=== PATIENT | female | born 1955 | race Caucasian/White ===

== ENCOUNTER 2019-12-28 13:24 | Inpatient (IN) | payer MEDICAID, OTHER ==
[2019-12-28 17:41] VITALS: BP 122/71
[2019-12-28] MEDS ORDERED: Acetaminophen 500 MG TAB PO PRN (17:42)
[2019-12-28] MEDS ORDERED: Magnesium Hydroxide (MOM) 30 mL UDC PO PRN (17:42)
[2019-12-29] MEDS: Multivitamin Tab PO SCH (09:51)
[2019-12-29 11:27] LABS: BILIRUBIN,TOTAL 0.2 mg/dL (0.0-1.0); CREATININE - SERUM 1.2 mg/dL (0.70-1.30); TOTAL PROTEIN,SERUM 6.5 g/dL (6.4-8.3)
--- NOTE | 2019-12-29 12:05 | History & Physical ---
ADMIT DATE: 12/28/2019 IDENTIFYING INFORMATION: The patient is a 64-year-old female. JUSTIFICATION FOR ADMISSION: The patient was admitted on a hold for grave disability. HISTORY OF PRESENT ILLNESS: The patient was living in a board and care, was found wandering in the streets became violent when she was approached, she was oriented only to person and place. She was a poor historian. When I tried talk to her, she was unable to participate in meaningful conversation, very confused and somewhat sedated. The patient is unable to give much information. Very poor historian. According to the hold, the patient was on the streets, acting bizarre, unable to take care of herself. Apparently, she wandered away from her board and care. PAST PSYCHIATRIC HISTORY: Unable to obtain because the patient was unable to participate in meaningful conversation. SUBSTANCE ABUSE HISTORY: Unable to obtain; however, order urine drug screen. MEDICAL HISTORY: As per medical doctor. CURRENT MEDICATIONS: Celexa 20 mg daily, BuSpar 15 mg twice a day. She is on multivitamin daily, Seroquel 300 mg at bedtime. Apparently may have mental illness seemed like she may have bipolar disorder. FAMILY AND SOCIAL HISTORY: Unable to obtain. MENTAL STATUS EXAMINATION: The patient is appropriately dressed, not well groomed. She was in bed. The patient was wandering in the streets became violent when she was approached. The patient is unable to participate in meaningful conversation, unable to tell me the date, where she is, why she is here, unable to make safe plan for self-care. I am not sure about her sleep and appetite or hallucination. She seems to have confused, unable to make safe plan for self-care, unable to test her memory. Her insight about her illness is poor, does not realize the problem. Judgment is poor with her wandering in the streets becoming aggressive. IMPRESSION: Bipolar disorder, unspecified with psychosis, cognitive disorder, not otherwise specified. MEDICAL DIAGNOSES: Deferred to the medical doctor. She is accepting treatment. Negative poor coping skills. INITIAL TREATMENT AND PLAN: The patient was started back on her medication. I asked the staff to check her ammonia level stat, will do group therapy, milieu therapy, and individual therapy. ESTIMATED LENGTH OF STAY: 3-7 days. DISCHARGE CRITERIA: Decreasing agitation, psychosis after discharge, outpatient treatment. JOB# [id number]
[2019-12-29 12:24] LABS: HEMATOCRIT 36.3 % (36-48); HEMOGLOBIN 11.9 g/dL (12.0-16.0); MEAN CORPUSCULAR HEMOGLOBIN 30 pg (27-31); MEAN CORPUSCULAR HGB CONC 33 % (32-36); MEAN CORPUSCULAR VOLUME 90 fL (79.0-98.0); PLATELET COUNT 180 K/uL (130-430); RED BLOOD COUNT 4.02 MIL/uL (4.2-6.2); RED CELL DISTRIBUTION WIDTH 13.6 % (9.0-15.0); WHITE BLOOD COUNT 4.5 K/uL (4.8-10.8)
[2019-12-29 12:25] LABS: BASOPHILS % (AUTO) 1.1 % (0.0-2.0); EOSINOPHILS # (AUTO) 0.1 K/uL (0.0-0.4); EOSINOPHILS % (AUTO) 2.7 % (0-4); LYMPHOCYTES # (AUTO) 1.4 K/uL (1.0-5.5); LYMPHOCYTES % (AUTO) 30.7 % (20.5-51.5); MONOCYTES # (AUTO) 0.4 K/uL (0.0-1.0); MONOCYTES % (AUTO) 8.5 % (1.7-9.3); NEUTROPHILS # (AUTO) 2.6 K/uL (1.8-7.7)
--- NOTE | 2019-12-29 14:03 | History & Physical ---
ADMIT DATE: 12/28/2019 CHIEF COMPLAINT: The patient was found wandering the streets. HISTORY OF PRESENT ILLNESS: We have a 64-year-old female with CKD who was found wandering the streets. The patient at this time is slightly obtunded and cannot give me any meaningful history. The patient was then admitted for psychiatric care. PAST MEDICAL HISTORY: 1. CKD. 2. Hypertension. MEDICATIONS: List reviewed. ALLERGIES: None. PHYSICAL EXAMINATION: VITAL SIGNS: Temperature is 98.0, pulse 66, respirations 20, blood pressure 98/64. HEENT: Normocephalic, atraumatic head exam. NECK: Supple. CARDIOVASCULAR: Regular rate and rhythm. LUNGS: Clear. ABDOMEN: Soft, nontender. EXTREMITIES: No edema, cyanosis or clubbing. Cranial nerves grossly intact ASSESSMENT AND PLAN: 1. Chronic kidney disease. 2. Hypertension. The patient will get routine labs including CBC, CMP. JOB# [id number] [facility]
[2019-12-30 06:07] LABS: A1C 5.3 % (4.8-5.6)
[2019-12-30] MEDS: Multivitamin Tab PO SCH (08:17)
--- NOTE | 2019-12-30 15:02 | Progress Notes ---
DATE: 12/30/2019 Case was discussed with staff of the patient, reviewed records. The patient described as being less selectively mute, but she was able to eat. She is compliant with the medications. She is sleeping most of the time. Continues to have poor insight, unable to engage in any meaningful conversation or give more information regarding her history. She is already on BuSpar and Celexa that she came on as well as Seroquel. No side effects with the medication, no sedation, no nausea, no extrapyramidal symptoms. We will continue outpatient group therapy, milieu therapy, and adjust medications as needed. JOB# [id number]
[2019-12-31] MEDS: Multivitamin Tab PO SCH (08:18)
--- NOTE | 2019-12-31 12:53 | Progress Notes ---
DATE: 12/31/2019 Case was discussed with staff of the patient, reviewed records. The patient was sitting in same bed, continues to be selectively mute, continues to be unable to participate in a meaningful conversation or make safe plan for self-care. She is being compliant with the medication with no side effects, no sedation, no nausea, no extrapyramidal symptoms. I cannot really give her any diagnosis of dementia or find out what is going on since she is not willing to talk at this time, the staff report that she eats sometimes. She is staying in bed most of the time. No side effects with the medication, no sedation, no nausea, no extrapyramidal symptoms. I will continue outpatient group therapy, milieu therapy, adjust medication as needed. JOB# [id number] MTDD
[2020-01-01] MEDS: Multivitamin Tab PO SCH (08:41)
--- NOTE | 2020-01-01 18:55 | Progress Notes ---
DATE: 01/01/2020 Case was discussed with staff of the patient, reviewed records. The patient continues to be selectively mute, though she has her eyes open and she is alert, but she would not answer any of my questions. Continues to be internally preoccupied. No side effects with the medication, no sedation, no nausea, no extrapyramidal symptoms. I will be increasing Seroquel to 325 mg at bedtime. We will continue outpatient group therapy, milieu therapy, adjust medication as needed. JOB# [id number]
[2020-01-01] MEDS: QUEtiapine Fumarate 300 MG, QUEtiapine Fumarate 25 MG PO SCH (21:28)
[2020-01-02] MEDS: Multivitamin Tab PO SCH (08:44)
--- NOTE | 2020-01-02 21:32 | Progress Notes ---
DATE: 01/02/2020 PSYCHIATRIC FOLLOWUP NOTE IDENTIFYING DATA: A 64-year-old female who was found wandering in the streets, became violent and disorganized, poor historian. Medication reconciliation reviewed. Nursing staff reported the patient mostly has been isolative, withdrawn, disengaged. Today on [id number] evaluation, the patient continues to be withdrawn in a position, disengaged. MENTAL STATUS EXAMINATION: Withdrawn, disengaged, preoccupied internally. ASSESSMENT AND PLAN: Ongoing psychosis. We will continue with the recent increase of Seroquel with the primary psychiatrist. Medication reconciliation reviewed, which include BuSpar, Celexa, Ativan as needed and quetiapine 325 at nighttime as needed. JOB# [id number]
[2020-01-03] MEDS: QUEtiapine Fumarate 300 MG, QUEtiapine Fumarate 25 MG PO SCH ×2 (06:47→21:34)
[2020-01-03] MEDS: Multivitamin Tab PO SCH (09:12)
--- NOTE | 2020-01-03 09:45 | Progress Notes ---
DATE: 01/03/2020 SUBJECTIVE: The patient was seen and evaluated. The patient's chart was reviewed. Covering for Dr. Olguin. Nursing staff reporting the patient continues to be isolative, withdrawn. Today on qbtx-xv-ihib evaluation, the patient is minimally interactive, disengaged. No overt agitation noted. MENTAL STATUS EXAMINATION: Withdrawn, ____. ASSESSMENT AND PLAN: A 64-year-old female with a history of psychosis, who continues to be internally preoccupied, mostly withdrawn, disengaged ____. We will continue with the primary psychiatrist's treatment plan and goals to continue to reach steady state. JOB# [id number]
[2020-01-04] MEDS: Multivitamin Tab PO SCH (08:08)
--- NOTE | 2020-01-04 11:17 | Progress Notes ---
DATE: 01/04/2020 Case was discussed with staff of the patient, reviewed records. The patient continues to be selectively mute, continues to have poor insight, isolating herself, but she is able to eat, not engaged at all. Unable to assess her for dementia because of her refusal to participate. No side effects with the medication, no sedation, no nausea, no extrapyramidal symptoms. I will be increasing her Seroquel further to 350 mg at bedtime and no side effects with the medication, no sedation, no nausea, no extrapyramidal symptoms. We will continue outpatient group therapy, milieu therapy, adjust medication as needed. JOB# [id number]
[2020-01-05] MEDS: Multivitamin Tab PO SCH (08:21)
--- NOTE | 2020-01-05 19:38 | Progress Notes ---
DATE: 01/05/2020 Case was discussed with staff of the patient. The patient was alert, this morning was standing. She has tardive dyskinesia, abnormal involuntary movements of her mouth and upper part of the body. She reported that she was . She has 4 kids, not sure how long she went to school. She reports she lives with her . Continues to have poor insight, unable to give much information. No side effects with the medication, no sedation, no nausea, no extrapyramidal symptoms. We will continue outpatient group therapy, milieu therapy, adjust the medication as needed. JOB# [id number]
[2020-01-06] MEDS: Multivitamin Tab PO SCH (08:46)
--- NOTE | 2020-01-06 14:16 | Progress Notes ---
DATE: 01/06/2020 Case was discussed with staff of the patient, reviewed records. The patient is more alert, able to talk; however, she is not sure where she is, why she is here. We are trying to get information from the family. Staff reports that she has no family involved. She is sleeping well, eating well. She is starting to become more clear. No side effects with the medication, no sedation, no nausea, no extrapyramidal symptoms. We will continue outpatient group therapy, milieu therapy, and adjust medications as needed. JOB# [id number]
[2020-01-07] MEDS: Multivitamin Tab PO SCH (08:41)
--- NOTE | 2020-01-07 18:54 | Progress Notes ---
DATE: 01/07/2020 Case was discussed with staff of the patient, reviewed records. The patient continues to isolate herself. Continues to have poor insight, continues to be unable to participate in a meaningful conversation or make safe plan for self-care. I tried reaching her family. There was no voicemail. No side effects with the medication, no sedation, no nausea, no extrapyramidal symptoms. We will continue outpatient group therapy, milieu therapy, and adjust medications as needed. JOB# [id number]
[2020-01-07] MEDS ORDERED: Albuterol Nebulizer 2.5mg/3mL HHN PRN (20:08)
[2020-01-07] MEDS: QUEtiapine Fumarate 300 MG, QUEtiapine Fumarate 50 MG, QUEtiapine Fumarate 25 MG PO SCH (20:39)
[2020-01-08] MEDS: Apixaban 5 MG TABLET PO SCH ×2 (08:59→17:26)
[2020-01-08] MEDS: Multivitamin Tab PO SCH (09:00)
[2020-01-08] MEDS: Pantoprazole 40 mg EC Tab PO SCH (09:00)
[2020-01-08 12:26] LABS: BLOOD, URINE NEGATIVE (NEGATIVE); GLUCOSE,URINE NEGATIVE (NEGATIVE); URINE BILIRUBIN NEGATIVE (NEGATIVE); URINE CLARITY CLOUDY (CLEAR); URINE COLOR YELLOW (YELLOW); URINE KETONE TRACE (NEGATIVE)
[2020-01-08 12:27] LABS: LEUKOCYTE ESTERASE ,URINE 3+ (NEGATIVE); PROTEIN URINE TRACE (NEGATIVE); URINE NITRATE NEGATIVE (NEGATIVE); URINE PH 7.5 (5.0-8.0)
[2020-01-08] MEDS: QUEtiapine Fumarate 300 MG, QUEtiapine Fumarate 50 MG, QUEtiapine Fumarate 25 MG PO SCH (20:58)
--- NOTE | 2020-01-08 21:32 | Progress Notes ---
DATE: 01/08/2020 Case was discussed with staff of the patient, reviewed records. The patient continues to stay in bed. She is still unable to engage in conversation. I called the number that we have for her sister, left a message yesterday, nobody called back. She is taking medications. The patient has tardive dyskinesia. She continues to have poor insight, unable to make safe plan for self-care. No acting out behavior, sleeping and eating better. No side effects with the medication, no sedation, no nausea other than tardive dyskinesia. We will continue outpatient group therapy, milieu therapy, adjust medication as needed. JOB# [id number]
[2020-01-09] MEDS: Pantoprazole 40 mg EC Tab PO SCH (08:30)
[2020-01-09] MEDS: Apixaban 5 MG TABLET PO SCH ×2 (08:30→16:42)
[2020-01-09] MEDS: Multivitamin Tab PO SCH (08:30)
--- NOTE | 2020-01-09 16:44 | Progress Notes ---
DATE: 01/09/2020 SUBJECTIVE: Case was discussed with staff of the patient, reviewed records. Today, the patient was able to tell me the number for her daughter and I called that number ,_ left her message to call; however, the patient is unable to give me much more information. Her answers are very short like yes or no. Cannot give much details, internally preoccupied. No side effects with the medication, no sedation, no nausea, no extrapyramidal symptoms. I will be increasing her Seroquel to 400 mg at bedtime as well as increasing dose seems to have helped her become more clear, and we will continue outpatient group therapy, milieu therapy, and adjust medication as needed. JOB# [id number] REGINALD
[2020-01-10] MEDS: Pantoprazole 40 mg EC Tab PO SCH (08:35)
[2020-01-10] MEDS: Multivitamin Tab PO SCH (08:35)
[2020-01-10] MEDS: Apixaban 5 MG TABLET PO SCH ×2 (08:35→16:45)
--- NOTE | 2020-01-10 19:35 | Progress Notes ---
DATE: 01/10/2020 Case was discussed with staff of the patient, reviewed records. The patient continues to isolate herself, internally preoccupied. I left a message to her daughter yesterday. The number she gave me. The staff also tried to call back to leave a message. I did left a message with a number for the unit here and my office that she could call back, so we can get more information. The patient is sleeping well and eating well. Continues to be unable to participate in a meaningful conversation for long-term or make safe plan for self-care or give any much more details about her condition. No side effects with the medication, no sedation, no nausea, no extrapyramidal symptoms. The patient came from a nursing facility and we will continue outpatient group therapy, milieu therapy, and adjust the medication as needed. JOB# [id number] MTDD
[2020-01-11] MEDS: Multivitamin Tab PO SCH (08:50)
[2020-01-11] MEDS: Pantoprazole 40 mg EC Tab PO SCH (08:51)
[2020-01-11] MEDS: Apixaban 5 MG TABLET PO SCH (08:51)
--- NOTE | 2020-01-11 13:58 | Discharge Summary ---
DATE OF DISCHARGE: 01/11/2020 IDENTIFYING INFORMATION: The patient is a 64-year-old female. HISTORY OF PRESENT ILLNESS: The patient was in a board and care and found wandering in the streets, became violent when she was approached, she was oriented to person and place. She was a poor historian. When I tried talk to her, she was unable to participate in meaningful conversation, very confused and somewhat sedated, unable to give much information. Very poor historian. The patient was acting bizarre, unable to care for herself. She went away from the board and care. COURSE IN THE HOSPITAL: She will continue Celexa 20 mg a day, BuSpar 15 mg twice a day and Seroquel was restarted and the dose was increased to 400 mg at bedtime and the patient was also kept on Eliquis. As I increased the dose of Seroquel, the patient started doing better. She was more alert, though she was at the beginning selectively mute and later, she started talking, she was also given the number for her daughter. The daughter was called and left a message, she did not call me back. However, she will call the outpatient case manager and was told her that_they have nothing to do with her that she need to go back to the nursing facility where she was . The patient was not acting out in anyway dangerous. She was sleeping well, eating well. She was not acting anyway dangerous. We felt she could be discharged to a lesser level of care. CONDITION ON DISCHARGE: The patient is not well able to function socially; however, she can take care of her ADLs as long as she is not acting psychotic. The patient also have tardive dyskinesia. FINAL DIAGNOSIS: 1. Schizoaffective disorder, depressed type. 2. Cognitive disorder, not otherwise specified. MEDICAL DIAGNOSIS: As per medical doctor. The patient will be going to a nursing facility. Followup with psychiatrist, primary care physician and therapist. EXPECTED OUTCOME: Stable if the patient complies with the above. JOB# [id number] REGINALD
== END 2020-01-11 15:45 | DRG 885 ==
LOC: GERO 17:15
PROVIDERS: ADMIT Psychiatry & Neurology Psychiatry; ATTEND Psychiatry & Neurology Psychiatry
DX: F25.1 Schizoaffective disorder, depressive type (principal); N18.9 Chronic kidney disease, unspecified; E44.1 Mild protein-calorie malnutrition; I12.9 Hypertensive chronic kidney disease with stage 1 through stage 4 chronic kidney disease, or unspecified chronic kidney disease; F09 Unspecified mental disorder due to known physiological condition; Z20.828 Contact with and (suspected) exposure to other viral communicable diseases; Z68.20 Body mass index [BMI] 20.0-20.9, adult
CPT/HCPCS: 36415-UA; 80053-TC; 80061-TC; 81003-TC; 82140-TC; 82948-90; 83036-90; 85025-TC; U0003-CS; Z7610